=== PATIENT | female | born 1995 | race Caucasian/White ===

== ENCOUNTER 2021-09-19 08:35 | Emergency (ER) | payer SELFPAY ==
[2021-09-19 08:36] VITALS: BP 110/73; PULSE 130; RESP 16; TEMP 36.7; O2SAT 98; BMI 25.8
--- NOTE | 2021-09-19 08:58 | CT_ITS ---
STUDY: CT ABDOMEN AND PELVIS WITH CONTRAST REASON FOR EXAM: Female, 26 years old. RLQ pain, right flank pain RADIATION DOSAGE (If Supplied By Facility): CTDIvol = ( 11.83 ) mGy, DLP = ( 681.20 ) mGycm TECHNIQUE: Transaxial images were obtained from the dome of the diaphragm to the symphysis pubis with oral contrast. IV 100mL Isovue-300 was administered. Sagittal and coronal images were reconstructed. Individualized dose optimization techniques were used for this CT. COMPARISON: None. FINDINGS: The visualized lung bases are unremarkable. The visualized portions of the heart are within normal limits. Normal liver. There are surgical clips in the gallbladder fossa consistent with a prior cholecystectomy. Normal spleen. Normal pancreas. Normal bilateral adrenal glands. Normal right kidney. Normal left kidney. Normal visualized stomach. Normal small intestine. Normal colon. The appendix is visualized and appears normal. Normal abdominal aorta. Normal inferior vena cava. Normal retroperitoneum. Normal urinary bladder. Normal abdominal wall. Normal osseous structures. CT/Abdomen/Pelvis W IV Cont ONLY IMPRESSION: Normal enhanced CT of the abdomen and pelvis. Electronically Signed: Charles García MD at 11:13 EDT ,
--- NOTE | 2021-09-19 08:59 | EKG12_ITS ---
Test Reason : CP Blood Pressure : / mmHG Vent. Rate : 104 BPM Atrial Rate : 104 BPM P-R Int : 116 ms QRS Dur : 090 ms QT Int : 326 ms P-R-T Axes : 067 076 061 degrees QTc Int : 428 ms Sinus tachycardia Otherwise normal ECG Confirmed by GALE RICHARD, JOSÉ MIGUEL ([id number]), editor farm journal CONRADO HUNT ([id number]) on 09/21/2021 1:20:54 PM Referred By: BRANDO Confirmed By:JOSÉ MIGUEL BEASLEY MD
[2021-09-19 09:06] LABS: Absolute Lymphocyte Count 1.47 X10^3/uL (0.83-4.51); Absolute Neutrophil Count 7.1 X10^3/uL (2.0-7.7); Basophil# 0.05 X10^3/uL; Basophil% 0.5 % (0-1); Eosinophil# 0.02 X10^3/uL; Eosinophils% 0.2 % (0-5); Hematocrit 41.2 % (37-47); Hemoglobin 13.7 g/dL (12.0-15.0); Lymphocyte # 1.47 X10^3/ul (0.83-4.51); Lymphocyte % 15.5 % (19-41); Mean Corp Hgb Conc 33.3 g/dL (32-36); Mean Corpuscular Volume 84.3 fL (81-99); Mean Platelet Vol. 10.6 fl (6.2-12.0); Monocyte# 0.85 X10^3/uL; Monocyte% 8.9 % (0-10); NRBC Flagged by Analyzer 0 % (0-5); Neutrophil # 7.08 X10^3/uL (2.7-7.7); Neutrophil % 74.6 % (47-70); Platelet Count 222 K/mm3 (150-450); RBC Distribution Width CV 13.7 % (11.6-14.6); RBC Distribution Width SD 42.5 fl (35.1-43.9); Red Blood Count 4.89 M/mm3 (4.2-5.4); White Blood Count 9.5 K/mm3 (4.4-11.0)
[2021-09-19 09:14] LABS: Bacteria 0 SEEN /hpf (None Seen); Mucous, Urine 0 SEEN /hpf (<or=2+)
[2021-09-19 09:20] LABS: ALB/GLOB Ratio 0.8 RATIO (0.9-2.4); AST(SGOT) 20 U/L (15-37); Alanine Aminotransfer ALT/SGPT 22 U/L (13-56); Albumin, Serum 3.8 g/dL (3.2-5.0); Alkaline Phosphatase 89 U/L (45-117); Anion Gap 11 (5-15); BUN 10 mg/dL (7-18); BUN/Creat Ratio 10.1 RATIO (10-20); Calcium,Total 8.9 mg/dL (8.5-10.1); Chloride 101 mmol/L (98-107); Creatinine, Serum 0.99 mg/dL (0.55-1.02); EST Glomerular Filtration Rate 71 mL/min (>60); Est Glom Filt Rate - Afr Amer 86 mL/min (>60); Globulin 4.5 g/dL (2.2-4.2); Glucose 105 mg/dL (74-106); Lipase 42 U/L (73-393); Potassium 3.4 mmol/L (3.5-5.1); Protein, Total 8.3 g/dL (6.4-8.2); Sodium Level 134 mmol/L (136-145)
[2021-09-19 09:22] LABS: Color, Urine Yellow (Yellow); Glucose, Dipstick Normal (Normal); Ketone-Dipstick 150 mg/dl (Negative); Leukocyte Esterase-Dipstick 500 /ul (Negative); Nitrite-Dipstick Positive (Negative); Occult Blood-Urine 150 /ul (Negative); Protein-Dipstick 30 mg/dl (Negative); Urine Bilirubin Dipstick 1 mg/dL (Negative); Urine Clarity Sl. Cloudy (Clear); Urine Urobilinogen 4 mg/dl (Normal)
[2021-09-19 09:24] LABS: Red Blood Cells-Urine 0-5 SEEN /hpf (0-5); Squamous Epithelial Cells - UA 0-5 SEEN /hpf (5-10); White Blood Cells 10-25 SEEN /hpf (0-5)
--- NOTE | 2021-09-19 09:24 | EX.ED.DYSGE1 ---
HPI History of Present Illness Chief Complaint: Nausea/Vomiting/Diarrhea Informant: patient Narrative Narrative: Patient is a 26-year-old female denies any significant past medical history presenting with abdominal pain, nausea, vomiting and dehydration. Patient states for 4 days she has had the symptoms. It started with of some urinary frequency and dysuria. She states she cannot keep down any water or food now for 4 days. She is also been having diarrhea. She is tried taking [id number] azole as well as Pepto-Bismol. She notes that her stool has been black since then and her urine is now turning orange. She has had increased vaginal discharge for the past 5 days as well. She is complaining of lower abdominal pain. She notes that she felt she was going to pass out was lightheaded coming to the ER today. She is also the sharp pain in her chest. She had surgical history of cholecystectomy, tonsillectomy and adenoidectomy and pilonidal cyst removal. She denies any difficulty breathing. Denies any history of anything similar to this in the past. Patient states that she is not on any control but is been told that she cannot get . She denies any new sexual partners. She states she is not concerned for any STI especially gonorrhea or chlamydia. Last menstrual period was 20 days ago. [facility] Medical History History of tonsillitis Home Medications metoclopramide HCl [Reglan] 10 mg PO Q6H PRN #20 tab 09/19/21 [Rx Last Taken Unknown] ondansetron 4 mg PO Q6H PRN #10 tab 09/19/21 [Rx Last Taken Unknown] sulfamethoxazole-trimethoprim [Bactrim DS] 1 tab PO BID #20 tab 09/19/21 [Rx Last Taken Unknown] Allergy/AdvReac Type Severity Reaction Status Date / Time amoxicillin Allergy Anaphylaxis Verified 09/19/21 08:36 Penicillins [PCN] Allergy Anaphylaxis Verified 09/19/21 08:36 Surgical History History of surgical removal of pilonidal cyst Hx of cholecystectomy Social History Smoking Status: Never smoker ROS ROS ED Constitutional Constitutional ED: Reports chills and other Details: Lightheaded ; Denies fever(s) Eyes Eyes: Denies change in vision Cardiovascular Cardiovascular: Reports chest pain; Denies palpitations Respiratory/Chest Respiratory/Chest: Denies cough or dyspnea Gastrointestinal Gastrointestinal: Reports abdominal pain, diarrhea, nausea and vomiting Genitourinary Genitourinary ED: Reports dysuria, hematuria and urinary frequency Musculoskeletal Musculoskeletal: Denies myalgias Integumentary Denies rash Neurologic Neurologic: Denies headache(s) or weakness Psychiatric Psychiatric: Denies depression EXAM Physical Exam Const Vital Signs: 09/19/21 08:36 09/19/21 10:36 09/19/21 12:51 Temperature 98.1 F Temperature Source Temporal Pulse Rate 130 H 99 74 Respiratory Rate 16 16 16 Blood Pressure 110/73 119/77 118/82 H Blood Pressure Mean 85 91 94 Pulse Ox 98 94 98 Oxygen Delivery Method Room Air Room Air Room Air 09/19/21 15:19 Temperature Temperature Source Pulse Rate 70 Respiratory Rate 18 Blood Pressure 119/74 Blood Pressure Mean Pulse Ox 97 Oxygen Delivery Method Positive well nourished and well developed General Appearance ED: well developed and NAD HEENT Reports dry mucous membranes Negative for trauma Mouth ED: Yes dry mucous membranes Mouth: dry mucous membranes Eyes PERRL and EOMs intact bilaterally Neck supple General: Negative for tenderness Chest Wall inspection of chest normal Resp normal respiratory effort and clear to auscultation bilaterally Cardio regular rhythm and no murmurs Rate: tachycardic GI non-distended Inspection: Negative for abdominal distention Palpation: soft and tender RLQ; Negative for guarding Back/Spine General Back: CVA tenderness right Extremity normal to inspection General Extremety ED: Negative for edema or tenderness General Extremity: Negative for edema Neuro oriented x3 and CN's II-XII intact bilaterally Motor Exam: general weakness Psych mental status grossly normal Skin no rashes or lesions noted and no wounds MDM MDM MDM Narrative Medical decision making narrative: Patient is evaluated for 4 days of dysuria now worsening nausea, vomiting and right-sided flank pain. She has been taking Pepto-Bismol as well as [id number] azo. I suspect the orange discoloration of her urine is from now so and her black stools are secondary to the Pepto-Bismol. Patient's hemoglobin is normal and I do not think she is an unstable GI bleed. CMP largely unremarkable. As she does have 150 ketones in her urine consistent with dehydration. She is given a total of 2 L of fluid and 2 doses of IV Zofran but continues to have some vomiting. Urinalysis is consistent with infection. Patient denies any concern for STIs but does report change in her vaginal discharge. I did send off gonorrhea and chlamydia which were negative. Urine culture is sent and clinically I suspect patient has pyelonephritis. Given the right-sided pain I did obtain a CT of the abdomen pelvis to also rule out obstructing stone versus appendicitis. CT is large unremarkable. Patient is then given IV Reglan and a dose of IV Bactrim for her UTI as she is allergic with anaphylaxis to penicillins. On repeat evaluation she is feeling much better. She is tolerating p.o. She be discharged home with a prescription for Zofran as well as oral Reglan and Bactrim. Patient is counseled on return precautions. Given that she can tolerate p.o. and she otherwise is afebrile with a normal white blood cell count and well-appearing I think she is a good candidate for outpatient treatment. Patient verbalizes agreement understand this plan. Discharged home in stable condition. Lab Data Attestation: I reviewed the patient's lab results. Labs: Laboratory Results - last 24 hr 09/19/21 09/19/21 09/19/21 08:55 08:55 08:55 WBC 9.5 RBC 4.89 Hgb 13.7 Hct 41.2 MCV 84.3 MCH 28.0 MCHC 33.3 RDW Std Deviation 42.5 RDW Coeff of Tanisha 13.7 Plt Count 222 MPV 10.6 Immature Gran % (Auto) 0.300 Neut % (Auto) 74.6 H Lymph % (Auto) 15.5 L Gove % (Auto) 8.9 Eos % (Auto) 0.2 Baso % (Auto) 0.5 Absolute Neuts (auto) 7.1 Absolute Lymphs (auto) 1.47 Nucleated RBC % 0 Sodium 134 L Potassium 3.4 L Chloride 101 Carbon Dioxide 22.0 Anion Gap 11 BUN 10 Creatinine 0.99 Estim Creat Clear Calc 79.20 Est GFR (MDRD) Af Amer 86 Est GFR (MDRD) Non-Af 71 BUN/Creatinine Ratio 10.1 Glucose 105 Calcium 8.9 Total Bilirubin 0.60 AST 20 ALT 22 Alkaline Phosphatase 89 Total Protein 8.3 H Albumin 3.8 Globulin 4.5 H Albumin/Globulin Ratio 0.8 L Lipase 42 L Serum , Qual NEGATIVE Urine Color Urine Clarity Urine pH Ur Specific [place] Urine Protein Urine Glucose (UA) Urine Ketones Urine Occult Blood Urine Nitrite Urine Bilirubin Urine Urobilinogen Ur Leukocyte Esterase Urine RBC Urine WBC Ur Squamous Epith Cells Urine Bacteria Urine Mucus Urine Test Chlam trachomat DNA PCR N.gonorrhoeae DNA (PCR) 09/19/21 09/19/21 09:09 09:09 WBC RBC Hgb Hct MCV MCH MCHC RDW Std Deviation RDW Coeff of Tanisha Plt Count MPV Immature Gran % (Auto) Neut % (Auto) Lymph % (Auto) Gove % (Auto) Eos % (Auto) Baso % (Auto) Absolute Neuts (auto) Absolute Lymphs (auto) Nucleated RBC % Sodium Potassium Chloride Carbon Dioxide Anion Gap BUN Creatinine Estim Creat Clear Calc Est GFR (MDRD) Af Amer Est GFR (MDRD) Non-Af BUN/Creatinine Ratio Glucose Calcium Total Bilirubin AST ALT Alkaline Phosphatase Total Protein Albumin Globulin Albumin/Globulin Ratio Lipase Serum , Qual Urine Color Yellow Urine Clarity Sl. Cloudy Urine pH 6.0 Ur Specific [place] 1.020 Urine Protein 30 H Urine Glucose (UA) Normal Urine Ketones 150 A* Urine Occult Blood 150 H Urine Nitrite Positive H Urine Bilirubin 1 H Urine Urobilinogen 4 H Ur Leukocyte Esterase 500 H Urine RBC 0-5 SEEN Urine WBC 10-25 SEEN Ur Squamous Epith Cells 0-5 SEEN Urine Bacteria 0 SEEN Urine Mucus 0 SEEN Urine Test Cancelled Chlam trachomat DNA PCR Negative N.gonorrhoeae DNA (PCR) Negative Radiography Diagnostic Testing: Clinical Impression(s) from Imaging Studies Abdomen/Pelvis CT 09/19/21 08:58 IMPRESSION: Normal enhanced CT of the abdomen and pelvis. Electronically Signed: Charles García MD at 11:13 EDT , Chest X-Ray 09/19/21 10:00 IMPRESSION: Normal x-ray examination of the chest. Electronically Signed: Charles García MD at 10:18 EDT , Rhythm Strip Rhythm Strip: Sinus Tach Rate: 104 Ectopy: None EKG Initial EKG: Attestation: I personally reviewed and interpreted this EKG as follows: Interpretation: Sinus Tachycardia Comments: Sinus tachycardia at a rate of 104 Normal axis Normal intervals Normal ST segments Prior: No Prior Discharge Plan Triage Chief Complaint: Nausea/Vomiting/Diarrhea ED Provider: Kat Sherman Dx/Rx/DC Orders Clinical Impression: Pyelonephritis, Nausea & vomiting, Acute dehydration Instructions: ED Pyelonephritis, Female (Adult), ED Vomiting (Adult) Prescriptions: New sulfamethoxazole-trimethoprim [Bactrim DS] 800-160 mg tablet 1 tab PO BID Qty: 20 RF: 0 metoclopramide HCl [Reglan] 10 mg tablet 10 mg PO Q6H PRN (Reason: nausea and vomiting) Qty: 20 RF: 0 ondansetron 4 mg tablet,disintegrating 4 mg PO Q6H PRN (Reason: nausea and vomiting) Qty: 10 RF: 0 Primary Care Provider: Care Physician,No Primary Referrals: Estela Huff MD [STAFF PHYSICIAN] - Rachele Johnson [NON-STAFF] - Care Physician,No Primary [Primary Care Provider] - Disposition Disposition: Home, Self Care Discharge Date/Time: 09/19/21 15:22
[2021-09-19] MEDS: 0.9% Normal Saline 1,000 ML 1000 ML IV (09:34)
[2021-09-19] MEDS: Ondansetron 4 MG/2 ML Vial IV ×2 (09:34→10:57)
--- NOTE | 2021-09-19 10:00 | RAD_ITS ---
STUDY: X-RAY CHEST REASON FOR EXAM: Female, 26 years old. chest pain TECHNIQUE: Single AP portable view of the chest. COMPARISON: None. FINDINGS: The lungs are clear and expanded. There is no demonstrated pleural abnormality. Normal size heart. Normal mediastinum and toni. Normal visualized pulmonary arteries. Normal visualized aortic arch and descending thoracic aorta. Normal visualized thoracic spine. Normal visualized ribs, clavicles, and shoulders. There is no demonstrated abnormality of the visualized soft tissue structures of the upper abdomen. RAD/Chest 1 View (Portable) IMPRESSION: Normal x-ray examination of the chest. Electronically Signed: Charles García MD at 10:18 EDT ,
[2021-09-19 10:01] LABS: Internal QC Validated? YES +Cl - CLEAR BKGD; Pregnancy, Serum, hCG Quali. NEGATIVE Negative
[2021-09-19 10:36] VITALS: BP 119/77; PULSE 99; RESP 16; O2SAT 94
[2021-09-19 10:51] LABS: Chlamydia Trachomatis by PCR Negative (Negative); Neisserai gonorrhoeae by PCR Negative (Negative); Specimen Processing Control PASS
[2021-09-19 10:52] LABS: Probe Check PASS; Sample Adequacy Control PASS
[2021-09-19] MEDS: 0.9% Normal Saline 1,000 ML 999 ML IV (10:57)
[2021-09-19 12:51] VITALS: BP 118/82; PULSE 74; RESP 16; O2SAT 98
[2021-09-19] MEDS: Metoclopramide 10 MG/2 ML Vial 5 MG IV (13:23)
[2021-09-19 15:19] VITALS: BP 119/74; PULSE 70; RESP 18; O2SAT 97
== END 2021-09-19 15:22 | disposition home or self-care (01) ==
PROVIDERS: Emergency Provider Emergency Medicine; Visit Provider Emergency Medicine
DX: N12 Tubulo-interstitial nephritis, not specified as acute or chronic (principal); E86.0 Dehydration; N89.8 Other specified noninflammatory disorders of vagina; Z11.3 Encounter for screening for infections with a predominantly sexual mode of transmission
CPT/HCPCS: 71045; 74177; 80048; 80053; 81001; 83690; 84703; 85025; 87086; 87088; 87491; 87591; 93005; 96361; 96365; 96366; 96375; 96376; 99284; J7030; J7050; Q9967; A4216; J2405

== ENCOUNTER 2022-04-04 09:30 | Emergency (ER) | payer SELFPAY ==
[2022-04-04 09:30] VITALS: BP 129/86; PULSE 101; RESP 16; TEMP 37; O2SAT 96; BMI 27.6
--- NOTE | 2022-04-04 10:48 | ED.VIS.DENTA ---
HPI History of Present Illness Chief Complaint: Dental Informant: patient Narrative Narrative: 26-year-old female presenting to the emergency room with the chief complaint of facial swelling. Patient states that on Sunday she flexed her right lower molar with her tongue and a piece of the tooth fell off. Up into that moment she had not had any pain in her tooth. She put some temporary filling on and called [facility] and they cannot see her until she has been on antibiotics. So they referred her to the emergency department for her dental care. She denies any fevers. She states her face feels swollen PFSH PFS Medical History History of tonsillitis Home Medications NK 04/04/22 [History Last Taken Unknown] Allergy/AdvReac Type Severity Reaction Status Date / Time amoxicillin Allergy Anaphylaxis Verified 04/04/22 09:30 Penicillins [PCN] Allergy Anaphylaxis Verified 04/04/22 09:30 Surgical History History of surgical removal of pilonidal cyst Hx of cholecystectomy Social History (Updated 04/04/22 @ 10:[address] Sid Miller DO) Smoking Status: Never smoker substance use type: does not use ROS ROS ED Constitutional Constitutional ED: Denies chills or weight loss Eyes Eyes: Denies change in vision or diplopia ENT ENT ED: Reports other Details: See history of present illness ; Denies ear pain, rhinorrhea or sore throat Cardiovascular Cardiovascular: Denies chest pain, orthopnea, palpitations or racing heartbeat Respiratory/Chest Respiratory/Chest: Denies cough, dyspnea or orthopnea Gastrointestinal Gastrointestinal: Denies abdominal pain, diarrhea, nausea or vomiting Genitourinary Genitourinary ED: Denies dysuria, hematuria or urinary frequency Musculoskeletal Musculoskeletal: Denies arthralgias or myalgias Integumentary Denies abscess or rash Neurologic Neurologic: Denies headache(s) or weakness Psychiatric Psychiatric: Denies anxiety, depression, suicidal ideation or suicidal thoughts Endocrine Endocrinology: Denies polydipsia, polyphagia or polyuria Allergic/Immunologic Allergic/Immunologic ED: Denies mouth swelling, tongue swelling or urticaria EXAM Physical Exam Const Vital Signs: 04/04/22 09:30 Temperature 98.6 F Temperature Source Temporal Pulse Rate 101 H Respiratory Rate 16 Blood Pressure 129/86 H Blood Pressure Mean 100 Pulse Ox 96 Oxygen Delivery Method Room Air Positive well nourished and well developed General Appearance ED: well developed HEENT Reports normocephalic, head/scalp atraumatic and moist mucous membranes HEENT Narrative: Mild facial swelling on the right. No overlying erythema. The eye appears normal. Inferior right molars demonstrates some temporary fillings in place. There is no focal gum swelling. There is no floor the mouth swelling. There is no trismus Eyes PERRL and EOMs intact bilaterally Neck no lymphadenopathy, supple and no JVD Resp normal respiratory effort and clear to auscultation bilaterally Cardio regular rate, regular rhythm and no murmurs GI normal to inspection, nondistended, normoactive bowel sounds and non-tender Palpation: soft Back/Spine no CVA tenderness and normal ROM Extremity normal to inspection General Extremety ED: Negative for edema General Extremity: Negative for edema Neuro oriented x3 and CN's II-XII intact bilaterally Sensorium / Orientation: alert Motor Exam: strength 5/5 throughout Psych mental status grossly normal Mood & Affect: Negative for depressed or tearful Skin no rashes or lesions noted and no wounds MDM MDM MDM Narrative Medical decision making narrative: Patient will be started on antibiotics and pain medication. She will follow-up with dentistry Discharge Plan Triage Chief Complaint: Dental ED Provider: Sid Miller Dx/Rx/DC Orders Prescriptions: No Action NK Primary Care Provider: Care Physician,No Primary Referrals: Care Physician,No Primary [Primary Care Provider] -
== END 2022-04-04 11:10 | disposition home or self-care (01) ==
LOC: ED 11:01
PROVIDERS: Emergency Provider Emergency Medicine; Visit Provider Emergency Medicine
DX: R22.0 Localized swelling, mass and lump, head (principal)
CPT/HCPCS: 99283

== ENCOUNTER 2022-07-07 11:06 | Emergency (ER) | payer SELFPAY ==
[2022-07-07 11:07] VITALS: PULSE 80; RESP 16; TEMP 36.7; O2SAT 98; BMI 27.4
--- NOTE | 2022-07-07 11:34 | EX.ED.DYSGE1 ---
HPI <CATARINA Palafox - Last Filed: 07/07/22 12:09> History of Present Illness Chief Complaint: Lower Extremity Injury Narrative Narrative: 27-year-old female presents with left foot pain. Yesterday she started to get pain around the first MTP joint and today the area started to look swollen and red on the sole of her foot. No known injury. She states she wears steel toed boots is on her feet for 8 hours a day at work. She has no history of gout. No fever or chills. No calf pain, chest pain or shortness of breath. PFSH <CATARINA Palafox - Last Filed: 07/07/22 12:09> PFSH Medical History History of tonsillitis Home Medications ibuprofen 600 mg tablet 600 mg PO Q6H PRN PRN pain #20 TABLETS 07/07/22 [Rx Last Taken Unknown] Allergy/AdvReac Type Severity Reaction Status Date / Time amoxicillin Allergy Anaphylaxis Verified 07/07/22 11:08 Penicillins [PCN] Allergy Anaphylaxis Verified 07/07/22 11:08 Surgical History History of surgical removal of pilonidal cyst Hx of cholecystectomy Social History (Updated 04/04/22 @ 10:[address] Sid Miller DO) Smoking Status: Never smoker substance use type: does not use ROS <CATARINA Palafox - Last Filed: 07/07/22 12:09> ROS ED ROS Narrative Constitutional: Negative for fever, chills, malaise. CVS: Negative for palpitations, chest pain. Respiratory: Negative for shortness of breath, cough. Neuro: Negative for motor/sensory dysfunction. Skin: Negative for rash, abscess, or wound. Musc: Positive for right foot pain, swelling. No trauma. Heme: Negative for easy bruising, bleeding, lymphadenopathy. EXAM <CATARINA Palafox - Last Filed: 07/07/22 12:09> Physical Exam Const Vital Signs: 07/07/22 11:07 Temperature 98.0 F Temperature Source Temporal Pulse Rate 80 Respiratory Rate 16 Pulse Ox 98 Oxygen Delivery Method Room Air <Dr. Roberto Bhakta MD - Last Filed: 07/07/22 13:43> Physical Exam Const Vital Signs: 07/07/22 11:07 Temperature 98.0 F Temperature Source Temporal Pulse Rate 80 Respiratory Rate 16 Pulse Ox 98 Oxygen Delivery Method Room Air [facility] <CATARINA Palafox - Last Filed: 07/07/22 12:09> [facility] Narrative Medical decision making narrative: PA: Patient has atraumatic right first MTP pain. There is mild swelling and slight erythema on the plantar surface of the right first MTP joint. There is no fluctuance or crepitus to suggest an abscess. There is no break in the skin. The rest of her lower extremity appears normal and is neurovascularly intact. No calf pain or palpable cords. This seems most consistent with gout but she has no history of this. X-ray was obtained. ED attending interpretation shows normal foot fracture or dislocation and no acute osseous changes. Patient was given a dose of prednisone and ibuprofen here with a prescription for ibuprofen for home. We discussed return precautions and she was discharged in stable condition. I have personally performed a face to face assessment of the patient and have reviewed the KARISSA Note. I performed a substantive portion of the visit including all aspects of the following. My maldonado findings include: History is remarkable for abrupt onset of atraumatic pain first right MTP joint. Patient denies history of gout or pseudogout. She is not on a loop or thiazide diuretic. There is no family history of gout. She denies history of gout or pseudogout. She denies fever, chills night sweats. She has no medical problems and on no medication. Exam is there is slight erythema medial plantar surface of the right first MTP joint. There is pain with passive plantar and dorsiflexion of the great toe. There is no evidence of trauma to the great toe or foot. DP and PT pulse are palpable. There is no effusion appreciated. There is no limitation with regards to range of motion of the ankle. Medical Decision Making suspect patient has gout versus pseudogout doubt pyogenic arthritis. Since there is no history of trauma no evidence of trauma doubt this to be the cause. Will obtain x-rays to determine if any radiographic evidence to suggest pseudogout or any bone destruction. Other additions or changes: Since there is no contraindication patient was treated with NSAID and given a dose of steroids in the department. She be discharged to home. Radiography Diagnostic Testing: Clinical Impression(s) from Imaging Studies Foot X-Ray 07/07/22 11:42 IMPRESSION: Negative right foot x-rays. Electronically Signed: Larry Jha MD at 11:55 EST Reading Location ID and State: [id number] Tel , Service support , <Dr. Roberto Bhakta MD - Last Filed: 07/07/22 13:43> [facility] MDM Narrative Medical decision making narrative: I have personally performed a face to face assessment of the patient and have reviewed the KARISSA Note. I performed a substantive portion of the visit including all aspects of the following. My maldonado findings include: History is remarkable for abrupt onset of atraumatic pain first right MTP joint. Patient denies history of gout or pseudogout. She is not on a loop or thiazide diuretic. There is no family history of gout. She denies history of gout or pseudogout. She denies fever, chills night sweats. She has no medical problems and on no medication. Exam is there is slight erythema medial plantar surface of the right first MTP joint. There is pain with passive plantar and dorsiflexion of the great toe. There is no evidence of trauma to the great toe or foot. DP and PT pulse are palpable. There is no effusion appreciated. There is no limitation with regards to range of motion of the ankle. Medical Decision Making suspect patient has gout versus pseudogout doubt pyogenic arthritis. Since there is no history of trauma no evidence of trauma doubt this to be the cause. Will obtain x-rays to determine if any radiographic evidence to suggest pseudogout or any bone destruction. Other additions or changes: Since there is no contraindication patient was treated with NSAID and given a dose of steroids in the department. She be discharged to home. Radiography Diagnostic Testing: Clinical Impression(s) from Imaging Studies Foot X-Ray 07/07/22 11:42 IMPRESSION: Negative right foot x-rays. Electronically Signed: Larry Jha MD at 11:55 EST , Discharge Plan Triage Chief Complaint: Lower Extremity Injury ED Midlevel Provider: Tomeka Gallego ED Provider: Roberto Bhakta Dx/Rx/DC Orders Clinical Impression: Acute pain of right foot, Acute gout involving toe of right foot Instructions: ED Gout Prescriptions: New ibuprofen 600 mg tablet 600 mg PO Q6H PRN PRN (Reason: pain) Qty: 20 0RF Stand Alone Forms: ED Work / School Excuse Primary Care Provider: Care Physician,No Primary Referrals: Care Physician,No Primary [Primary Care Provider] - Activity Restrictions/Additional Instructions: You may be developing gout. I prescribed ibuprofen which is an anti-inflammatory to help treat this pain and inflammation. You were also given a dose of steroids here which should help. Please follow-up with your primary care doctor. Return to ER if symptoms worsen. Disposition Disposition: Home, Self Care Discharge Date/Time: 07/07/22 12:43
--- NOTE | 2022-07-07 11:42 | RAD_ITS ---
EXAM: XR RIGHT FOOT COMPLETE, 3 OR MORE VIEWS CLINICAL INDICATION: foot pain TECHNIQUE: Frontal, lateral and oblique views of the right foot. This report was created using [employer] report generation technology. COMPARISON: None. FINDINGS: BONES/JOINTS: Unremarkable. No acute fracture. No subluxation. Normal alignment. Preservation of the joint space. No sclerotic or destructive changes observed. SOFT TISSUES: Unremarkable. No soft tissue swelling or gas. No radiopaque foreign body. RAD/Foot min 3 Views IMPRESSION: Negative right foot x-rays. Electronically Signed: Larry Jha MD at 11:55 EST ,
[2022-07-07] MEDS: Ibuprofen 600 MG Tablet PO (11:46)
[2022-07-07] MEDS: predniSONE 20 MG Tablet 60 MG PO (12:41)
== END 2022-07-07 12:43 | disposition home or self-care (01) ==
PROVIDERS: Emergency Provider Emergency Medicine; Visit Provider Emergency Medicine
DX: M10.9 Gout, unspecified (principal)
CPT/HCPCS: 73630; 99283

== ENCOUNTER 2022-07-10 15:36 | Emergency (ER) | payer SELFPAY ==
[2022-07-10 15:36] VITALS: BP 133/98; PULSE 105; RESP 14; TEMP 36.3; O2SAT 98; BMI 27.4
--- NOTE | 2022-07-10 16:31 | EDS_ITS ---
HPI History of Present Illness Chief Complaint: Lower Extremity Injury Informant: patient Narrative Narrative: Patient states she has been having pain in her first MTP since about Sunday/5 days ago. She was seen a few days ago for this. This appeared to be gout. She was started on nonsteroidals. She was given a dose of steroids. An x-ray was done. But she states the pain is not getting any better. She still not having fevers or chills. But she does state the pain seems to be moving up the foot and lower leg a little bit at times. She again denies any trauma or injury to this. No recent infections. Of note she does have anaphylaxis to penicillins so those will be avoided. [facility] Medical History History of tonsillitis Home Medications ibuprofen 600 mg tablet 600 mg PO Q6H PRN PRN pain #20 TABLETS 07/07/22 [Rx Last Taken Unknown] ciprofloxacin HCl 750 mg tablet 750 mg PO BID #20 tabs 07/10/22 [Rx Last Taken Unknown] doxycycline monohydrate 100 mg capsule 100 mg PO BID #20 CAPSULES 07/10/22 [Rx Last Taken Unknown] hydrocodone-acetaminophen 5-325mg 5mg-325mg 1 tab PO Q6H PRN PRN Pain 3 days #10 TABLETS 07/10/22 [Rx Last Taken Unknown] Allergy/AdvReac Type Severity Reaction Status Date / Time amoxicillin Allergy Anaphylaxis Verified 07/10/22 15:38 Penicillins [PCN] Allergy Anaphylaxis Verified 07/10/22 15:38 vancomycin AdvReac Hives Verified 07/10/22 17:48 Family History no significant family his Surgical History History of surgical removal of pilonidal cyst Hx of cholecystectomy Social History Smoking Status: Never smoker substance use type: does not use ROS ROS ED Constitutional Constitutional ED: Denies fever(s) or subjective ENT ENT ED: Denies rhinorrhea or sore throat Cardiovascular Cardiovascular: Denies chest pain, palpitations or racing heartbeat Respiratory/Chest Respiratory/Chest: Denies cough or dyspnea Gastrointestinal Gastrointestinal: Denies nausea or vomiting Musculoskeletal Musculoskeletal: Reports arthralgias; Denies neck pain Integumentary Reports rash and other Details: Redness near first MTP area. Neurologic Neurologic: Denies paresthesias or weakness Endocrine Endocrinology: Denies polydipsia or polyuria Hematologic/Lymphatic Hematologic/Lymphatic: Denies lymphadenopathy Allergic/Immunologic Allergic/Immunologic ED: Denies urticaria EXAM Physical Exam Narrative Exam Narrative: Patient is awake alert sitting in bed. She does not look toxic or acutely ill. HEENT shows moist mucous membranes Heart is regular with a rate of about 90-100. No murmur. No trouble breathing. Sats are normal at 98% on room air. Abdomen is soft nontender Extremities do show some erythema that is notable right at the medial aspect of her right first MTP. This is strongly consistent with gout. However, when I looked under the great toe there is an area about 1/2 x 1-1/2 cm that is white and appears to have some purulence behind this. This area is also tender. There is pain with motion of that joint. I think this actually now is representing an infection. Patient has not seen the spot. But she does state that the swelling has increased since the other day so I think this is new. I do not see erythema streaking up the leg. There is no cord or tenderness or asymmetry. Neurologically she is awake alert and appropriate. Const Vital Signs: 07/10/22 15:36 Temperature 97.3 F L Temperature Source Temporal Pulse Rate 105 H Respiratory Rate 14 Blood Pressure 133/98 H Blood Pressure Mean 109 Pulse Ox 98 Oxygen Delivery Method Room Air MDM MDM MDM Narrative Medical decision making narrative: Patient CBC is actually normal. Electrolytes show no marked abnormalities. Glucose had minimal elevation of 112. Calcium was normal. Uric acid was very normal. Because of the repeat visit, swelling around the whole toe and worry about intra-articular involvement, I did discuss the case with Dr. Macias. He was kind enough to come in and see this patient. He did open up that area and get a lot of drainage and irrigation out. He recommended Doxy and Cipro. He will follow her up as an outpatient. He states she may need more formal washout but he thinks he got pretty good cleaning of that area and she has excellent follow- up. Lab Data Labs: Laboratory Results - last 24 hr 03/13/23 03/13/23 03/13/23 16:42 16:42 16:42 WBC 8.9 RBC 4.81 Hgb 13.5 Hct 44.3 MCV 92.1 MCH 28.1 MCHC 30.5 L RDW Std Deviation 43.4 RDW Coeff of Tanisha 12.8 Plt Count 298 MPV 9.8 Immature Gran % (Auto) 0.200 Neut % (Auto) 58.1 Lymph % (Auto) 31.6 [place] % (Auto) 7.3 Eos % (Auto) 2.5 Baso % (Auto) 0.3 Absolute Neuts (auto) 5.2 Absolute Lymphs (auto) 2.82 Nucleated RBC % 0 Sodium 140 Potassium 3.8 Chloride 105 Carbon Dioxide 30.0 Anion Gap 5 BUN 10 Creatinine 0.75 Estim Creat Clear Calc 103.61 Est GFR (MDRD) Af Amer 118 Est GFR (MDRD) Non-Af 98 BUN/Creatinine Ratio 13.4 Glucose 112 H Uric Acid 4.4 Calcium 8.8 Discharge Plan Triage Chief Complaint: Lower Extremity Injury ED Provider: Julio Benoit Dx/Rx/DC Orders Clinical Impression: Abscess of right foot Instructions: ED Abscess Incision And Drainage Prescriptions: New doxycycline monohydrate 100 mg capsule 100 mg PO BID Qty: 20 0RF ciprofloxacin HCl 750 mg tablet 750 mg PO BID Qty: 20 0RF hydrocodone-acetaminophen [hydrocodone-acetaminophen] 5-325 mg tablet 1 tab PO Q6H PRN PRN (Reason: Pain) 3 Days Qty: 10 0RF No Action ibuprofen 600 mg tablet 600 mg PO Q6H PRN PRN (Reason: pain) Qty: 20 0RF Primary Care Provider: Care Physician,No Primary Referrals: Sid Macias DPM [Med Staff - Active Staff] - Keep [facility] appointment Care Physician,No Primary [Primary Care Provider] - Disposition Disposition: Home, Self Care
[2022-07-10] MEDS: 0.9% Normal Saline 1,000 ML 1000 ML IV (16:46)
[2022-07-10] MEDS: Morphine 4 MG/ML Syringe IV (16:46)
[2022-07-10] MEDS: Ondansetron 4 MG/2 ML Vial IV (16:46)
[2022-07-10 16:51] LABS: Absolute Lymphocyte Count 2.82 X10^3/uL (0.83-4.51); Absolute Neutrophil Count 5.2 X10^3/uL (2.0-7.7); Basophil# 0.03 X10^3/uL; Basophil% 0.3 % (0-1); Eosinophil# 0.22 X10^3/uL; Eosinophils% 2.5 % (0-5); Hematocrit 44.3 % (37-47); Hemoglobin 13.5 g/dL (12.0-15.0); Lymphocyte # 2.82 X10^3/ul (0.83-4.51); Lymphocyte % 31.6 % (19-41); Mean Corp Hgb Conc 30.5 g/dL (32-36); Mean Corpuscular Hgb 28.1 pg (27.0-32.0); Mean Corpuscular Volume 92.1 fL (81-99); Mean Platelet Vol. 9.8 fl (6.2-12.0); Monocyte# 0.65 X10^3/uL; Monocyte% 7.3 % (0-10); NRBC Flagged by Analyzer 0 % (0-5); Neutrophil # 5.17 X10^3/uL (2.7-7.7); Neutrophil % 58.1 % (47-70); Platelet Count 298 K/mm3 (150-450); RBC Distribution Width CV 12.8 % (11.6-14.6); RBC Distribution Width SD 43.4 fl (35.1-43.9); Red Blood Count 4.81 M/mm3 (4.2-5.4); White Blood Count 8.9 K/mm3 (4.4-11.0)
[2022-07-10 17:03] LABS: Anion Gap 5 (5-15); BUN 10 mg/dL (7-18); BUN/Creat Ratio 13.4 RATIO (10-20); Calcium,Total 8.8 mg/dL (8.5-10.1); Chloride 105 mmol/L (98-107); Creatinine, Serum 0.75 mg/dL (0.55-1.02); EST Glomerular Filtration Rate 98 mL/min (>60); Est Glom Filt Rate - Afr Amer 118 mL/min (>60); Estimated Creatinine Clearance 103.61 ml/min; Glucose 112 mg/dL (74-106); Potassium 3.8 mmol/L (3.5-5.1); Sodium Level 140 mmol/L (136-145)
[2022-07-10] MEDS: DiphenhydrAMINE 50 MG/ML Syringe 25 MG IV (17:35)
--- NOTE | 2022-07-10 17:43 | ED.RN ---
Patient had a reaction to the Vancomycin. Medication stopperd. Red man syndrome. Physician notified.
[2022-07-10 18:24] LABS: Uric Acid 4.4 mg/dL (2.6-6.0)
[2022-07-10] MEDS: Lidocaine 1% (20 ml mdv) 20 ML Vial INFILT (18:59)
--- NOTE | 2022-07-10 19:17 | PCM.CONS.GEN ---
Assessment & Plan Assessment/Plan (1) Acute pain of right foot: PLAN: Exam performed. Patient has an abscess to the interdigital space. Patient historically has had athlete's foot in the past. Potential that there is cracking or fissuring in the interdigital space which allowed for acute bacterial infection to develop. Patient is vitally stable. Labs were within normal limits. Uric acid was within normal limits. Radiographs within normal limits to right foot. Local incision and drainage performed to right foot abscess in the interdigital space Surgeon: Sid Macias D.P.M. Preop diagnosis: focal abscess right foot interdigital space first interspace Postoperative diagnosis: same Procedure: incision drainage abscess right foot Procedure in detail: After obtaining oral consent the right foot was prepped and a standard Potter block was performed using aseptic technique with 10cc 2.0% lidocaine plain. Additional local infiltration with lidocaine was applied at the plantar lateral hallux using 5 cc 2.0% lidocaine plain. Adequate anesthesia was noted at this time. Site was prepped with Betadine paint and using sterile scissors the blister was deroofed with combination of pickups. This blister was noted to track full-thickness into subcutaneous tissue. This time there is noted to be approximately 3 to 4 cc of purulent drainage that was expressed from the incision and drainage site. This was cultured with culture swabs and flushed with copious amounts of normal sterile saline. Subsequently hemostasis obtained with light compression. Patient tolerated procedure well. Site was dressed with Betadine paint 4 x 4's Kerlix and an Diego bandage. Patient had focal abscess to right plantar foot. As mentioned incision drainage performed. Site was cultured. Patient will keep dressing clean dry and intact and follow-up either or Sunday of this week. Patient will be discharged on p.o. doxycycline and ciprofloxacin, will change cultures pending final culture and sensitivity. Patient will maintain nonweightbearing status assisted by crutches. Patient will contact our clinic if she notes any signs or symptoms of worsening. Patient was instructed to use ibuprofen or Tylenol for any pain in the postprocedural stage. (2) Cellulitis of right toe: HPI Consult Data Date of Consult: 07/10/22 HPI Narrative HPI Narrative: GÓMEZ VENCES, is a 27 F who presents to the emergency with a red hot swollen right great toe. Patient has no family history of gout and no personal history of gout. Patient denies any injury to the site. Patient notes that the issues been present for a week and progressively worsening. Patient was seen in the ED 3 days prior treated for gout. Patient presents today with worsening of her symptoms and a blister forming in the interdigital spaces. Patient denies any constitutional symptoms. Patient denies any IV drug abuse. Patient denies any history of systemic illness that may cause immunosuppression. Patient denies stepping on any foreign body bug bites or animal bites. Patient notes pain with ambulation or manipulation of the right great toe joint. Patient has no other complaints at this time. [facility] Medical History History of tonsillitis Home Medications ibuprofen 600 mg tablet 600 mg PO Q6H PRN PRN pain #20 TABLETS 07/07/22 [Rx Last Taken Unknown] Allergy/AdvReac Type Severity Reaction Status Date / Time amoxicillin Allergy Anaphylaxis Verified 07/10/22 15:38 Penicillins [PCN] Allergy Anaphylaxis Verified 07/10/22 15:38 vancomycin AdvReac Hives Verified 07/10/22 17:48 Family History no significant family his Surgical History History of surgical removal of pilonidal cyst Hx of cholecystectomy Social History Smoking Status: Never smoker substance use type: does not use ROS Constitutional Constitutional: Denies fatigue, fever(s) or weight loss Eyes Eyes: Denies change in eye color, exophthalmos or nystagmus ENT HEENT: Denies dysphagia, mouth pain or sinus pain Cardiovascular Cardiovascular: Denies bluish discoloration of hand/feet, dyspnea at rest or lightheadedness Respiratory/Chest Respiratory/Chest: Denies difficulty clearing secretions, nail bed cyanosis or shortness of breath at rest Gastrointestinal Gastrointestinal: Denies chewing difficulty, coffee ground emesis or hematemesis Genitourinary Genitourinary: Denies contractions, difficulty urinating or genital pain Musculoskeletal Musculoskeletal: Denies joint stiffness, joint swelling or tingling Integumentary Integumentary: Reports erythema, furuncle and wounds Physical Exam Narrative Patient AOx3. Vascular dorsalis pedis posterior tibial pulses palpable 2 out of 4 to bilateral feet. Focal swelling noted to right plantar first metatarsal phalangeal joint with focal increase in warmth and erythema. Neurologic light touch protective sensation intact to bilateral feet. Dermatologic: There is noted to be an area of blistering into the interdigital space. This demonstrates significant peribullous erythema edema pain and fluctuance. Upon debridement there is noted to be approximately 3 cc of purulent drainage from the site. Small focal ulceration noted to the interdigital space at site of I&D. Musculoskeletal: No gross musculoskeletal deformities. Pain to right first metatarsophalangeal joint secondary to superficial infection. Lab / Micro Data Result Diagrams: 07/10/22 16:42 07/10/22 16:42 Labs: Laboratory Results - last 24 hr 07/10/22 16:42: WBC 8.9, RBC 4.81, Hgb 13.5, Hct 44.3, MCV 92.1, MCH 28.1, MCHC 30.5 L, RDW Std Deviation 43.4, RDW Coeff of Tanisha 12.8, Plt Count 298, MPV 9.8, Immature Gran % (Auto) 0.200, Neut % (Auto) 58.1, Lymph % (Auto) 31.6, [place] % (Auto) 7.3, Eos % (Auto) 2.5, Baso % (Auto) 0.3, Absolute Neuts (auto) 5.2, Absolute Lymphs (auto) 2.82, Nucleated RBC % 0 07/10/22 16:42: Sodium 140, Potassium 3.8, Chloride 105, Carbon Dioxide 30.0, Anion Gap 5, BUN 10, Creatinine 0.75, Estim Creat Clear Calc 103.61, Est GFR (MDRD) Af Amer 118, Est GFR (MDRD) Non-Af 98, BUN/Creatinine Ratio 13.4, Glucose 112 H, Calcium 8.8 07/10/22 16:42: Uric Acid 4.4
[2022-07-10 19:43] VITALS: RESP 16
== END 2022-07-10 19:47 | disposition home or self-care (01) ==
PROVIDERS: Emergency Provider Emergency Medicine; Visit Provider Emergency Medicine
DX: L02.611 Cutaneous abscess of right foot (principal); Z88.0 Allergy status to penicillin; M10.9 Gout, unspecified
CPT/HCPCS: 10060; 80048; 84550; 85025; 96361; 96365; 96375; 99283; J7030; J7050; A4216; J2405

== ENCOUNTER → 2023-08-28 | Outpatient (CLI) | payer BC, SELFPAY | END | disposition home or self-care (01) | PROVIDERS: Visit Provider Podiatrist | DX: L97.512 Non-pressure chronic ulcer of other part of right foot with fat layer exposed (principal) | CPT/HCPCS: 87070; 87075; 87077; 87186; 87205 ==

== ENCOUNTER → 2023-08-29 | Outpatient (CLI) | payer SELFPAY ==
[2023-08-29 12:25] LABS: Absolute Lymphocyte Count 3.31 X10^3/uL (0.83-4.51); Absolute Neutrophil Count 3.7 X10^3/uL (2.0-7.7); Basophil# 0.06 X10^3/uL; Basophil% 0.7 % (0-1); Eosinophil# 0.64 X10^3/uL; Eosinophils% 7.7 % (0-5); Hematocrit 39.3 % (37-47); Hemoglobin 13.2 g/dL (12.0-15.0); Lymphocyte # 3.31 X10^3/ul (0.83-4.51); Lymphocyte % 39.6 % (19-41); Mean Corp Hgb Conc 33.6 g/dL (32-36); Mean Corpuscular Hgb 28.9 pg (27.0-32.0); Mean Platelet Vol. 10.1 fl (6.2-12.0); Monocyte# 0.66 X10^3/uL; Monocyte% 7.9 % (0-10); NRBC Flagged by Analyzer 0 % (0-5); Neutrophil # 3.66 X10^3/uL (2.7-7.7); Neutrophil % 43.9 % (47-70); Platelet Count 338 K/mm3 (150-450); RBC Distribution Width CV 12.5 % (11.6-14.6); Red Blood Count 4.57 M/mm3 (4.2-5.4); White Blood Count 8.4 K/mm3 (4.4-11.0)
[2023-08-29 12:28] LABS: Erythrocyte Sedimentation Rate 20 mm/hr (0-30)
[2023-08-29 13:06] LABS: AST(SGOT) 15 U/L (15-37); Alanine Aminotransfer ALT/SGPT 28 U/L (13-56); Albumin, Serum 3.6 g/dL (3.2-5.0); Alkaline Phosphatase 100 U/L (45-117); Anion Gap 5 (5-15); BUN 14 mg/dL (7-18); BUN/Creat Ratio 15.2 RATIO (10-20); Calcium,Total 8.8 mg/dL (8.5-10.1); Chloride 104 mmol/L (98-107); Creatinine, Serum 0.92 mg/dL (0.55-1.02); EST Glomerular Filtration Rate 76 mL/min (>60); Est Glom Filt Rate - Afr Amer 92 mL/min (>60); Globulin 3.6 g/dL (2.2-4.2); Glucose 114 mg/dL (74-106); Potassium 3.3 mmol/L (3.5-5.1); Prealbumin 24.8 mg/dL (20.0-40.0); Protein, Total 7.2 g/dL (6.4-8.2); Sodium Level 138 mmol/L (136-145)
[2023-08-29 13:32] LABS: Hemoglobin A1c 5.5 % (3.8-5.6)
== END | disposition home or self-care (01) ==
PROVIDERS: Referring Provider Podiatrist; Visit Provider Podiatrist
DX: L97.512 Non-pressure chronic ulcer of other part of right foot with fat layer exposed (principal)
CPT/HCPCS: 36415; 80053; 83036; 84134; 85025; 85652; 86140

== ENCOUNTER → 2023-09-17 | Outpatient (CLI) | payer SELFPAY ==
--- NOTE | 2023-09-17 12:54 | MRI_ITS ---
EXAM: MR RIGHT LOWER EXTREMITY WITHOUT INTRAVENOUS CONTRAST CLINICAL INDICATION: RT FOOT, CELLULITIS OF TOE TECHNIQUE: Multiplanar and multisequence MR images of the right lower extremity without intravenous contrast. COMPARISON: 07/07/22 exam FINDINGS: BONES/JOINTS: Bone marrow edema involving the tibial sesamoid. No fracture. No abnormal bone marrow signal. No joint effusion. MUSCLES: Unremarkable. No edema or myositis. OTHER SOFT TISSUES: Unremarkable. No solid or cystic mass. MRI/Lower Ext/No Jt/w/o IMPRESSION: Tibial sesamoid marrow edema which can be due to trauma with no fracture line seen. Ischemic change can also have a similar appearance. Electronically Signed: Power Darby MD at 22:44 EDT ,
== END | disposition home or self-care (01) ==
PROVIDERS: Referring Provider Podiatrist; Visit Provider Podiatrist
DX: L03.031 Cellulitis of right toe (principal)
CPT/HCPCS: 73718

== ENCOUNTER 2023-10-24 08:41 | Emergency (ER) | payer SELFPAY ==
[2023-10-24 08:41] VITALS: BP 112/81; PULSE 76; RESP 16; TEMP 36.2; O2SAT 97; BMI 29.4
--- NOTE | 2023-10-24 09:03 | EDS_ITS ---
HPI History of Present Illness Chief Complaint: Head Injury Narrative Narrative: 28-year-old female presenting with head and neck pain. Patient states that she was crawling around under her kitchen table playing with a cat and stood up at full speed not realizing the table as above and hit her head and injured her neck. She had the vertex of her head. She did not have LOC. She is not on any anticoagulation but she states she felt like she was dizzy and she has a severe headache. She also has light sensitivity and she started vomiting. Patient's neck is painful everywhere. She denies any paresthesias. She is able to walk into the emergency room. [facility] Medical History History of tonsillitis Home Medications ?Medication ?Instructions ?Recorded ?Last Taken ?Type ibuprofen 600 mg tablet 600 mg PO Q6H PRN PRN pain #20 07/07/22 Unknown Rx TABLETS ciprofloxacin HCl 750 mg tablet 750 mg PO BID #20 tabs 07/10/22 Unknown Rx doxycycline monohydrate 100 mg 100 mg PO BID #20 CAPSULES 07/10/22 Unknown Rx capsule hydrocodone-acetaminophen 5-325mg 1 tab PO Q6H PRN PRN Pain 3 days 07/10/22 Unknown Rx 5mg-325mg #10 TABLETS ondansetron 4 mg disintegrating 4 mg PO Q8H PRN PRN Nausea #14 tabs 10/24/23 Unknown Rx tablet Allergy/AdvReac Type Severity Reaction Status Date / Time amoxicillin Allergy Anaphylaxis Verified 07/10/22 15:38 Penicillins (PCN) Allergy Anaphylaxis Verified 07/10/22 15:38 vancomycin AdvReac Hives Verified 07/10/22 17:48 Surgical History History of surgical removal of pilonidal cyst Hx of cholecystectomy Social History Smoking Status: Never smoker substance use type: does not use ROS ROS ED Constitutional Constitutional ED: Denies chills, fever(s) or sweats Eyes Eyes: Reports other Details: Light sensitivity ; Denies blurry vision or change in vision ENT ENT ED: Denies ear pain or sore throat Cardiovascular Cardiovascular: Denies chest pain, palpitations or racing heartbeat Respiratory/Chest Respiratory/Chest: Denies cough, dyspnea or sputum Gastrointestinal Gastrointestinal: Reports nausea and vomiting; Denies abdominal pain, constipation or diarrhea Genitourinary Genitourinary ED: Denies dysuria, hematuria or urinary frequency Musculoskeletal Musculoskeletal: Denies arthralgias, myalgias or neck pain Integumentary Denies abscess, Abrasions or rash Neurologic Neurologic: Reports headache(s); Denies paresthesias or weakness Psychiatric Psychiatric: Denies anxiety, depression, suicidal ideation or suicidal thoughts Endocrine Endocrinology: Denies polydipsia or polyuria EXAM Physical Exam Const Vital Signs: 10/24/23 08:41 10/24/23 09:41 10/24/23 11:09 Temperature 97.2 F L 98.7 F Temperature Source Temporal Pulse Rate 76 84 Respiratory Rate 16 16 Respiratory Effort Normal Non-Labored Respiratory Depth Normal Respiratory Pattern Normal Blood Pressure 112/81 H 122/74 H Blood Pressure Mean 91 90 Pulse Ox 97 100 Oxygen Delivery Method Room Air Room Air Positive well nourished General Appearance ED: NAD HEENT Reports normocephalic and TM's clear HEENT Narrative: Tenderness to palpation over the vertex of the scalp. No visible hematoma. No laceration. Negative for Martinez's sign, hematoma, laceration or raccoon eyes Face and Sinus: normal facial exam Nose: external nose normal and nares normal Tympanic Membrane ED: Yes TM's clear bilateral Mouth ED: Yes lips normal and Yes tongue normal Mouth: lips normal and tongue normal Eyes PERRL and EOMs intact bilaterally Neck Neck Narrative: Diffuse tenderness to palpation over the cervical spine. No midline deformity or step-off. Chest Wall inspection of chest normal Resp normal respiratory effort Cardio regular rhythm Extremity normal to inspection Neuro oriented x3, CN's II-XII intact bilaterally, moves all extremities, no focal motor deficits and no sensory deficits noted [place] Coma Scale: document GCS findings Spontaneous Obeys Commands Oriented 15 Sensorium / Orientation: alert Motor Exam: strength 5/5 throughout Psych mental status grossly normal and thought process normal Skin no rashes or lesions noted and no wounds MDM MDM MDM Narrative Medical decision making narrative: Patient presenting with headache and neck pain after hitting her head on the table at home. Differential includes concussion, skull fracture, cervical strain, cervical fracture, intracranial hemorrhage. IV line was established patient medicated with Reglan, Benadryl. Will obtain CT brain, cervical spine. On reevaluation patient's headache is improved. CT brain negative and CT cerv ical spine also negative. I believe the patient has a concussion. Patient does not have a primary care physician nor does she have insurance that she was referred to [facility]. Return precautions were discussed. Impression: 1. Concussion 2. Closed head injury 3. Cervical strain Radiography Diagnostic Testing: Clinical Impression(s) from Imaging Studies Brain CT 10/24/23 10:00 IMPRESSION: Normal unenhanced CT scan of the brain. Electronically Signed: Vinicio Phillips MD at 10:23 EDT , Cervical Spine CT 10/24/23 10:00 IMPRESSION: Loss of the normal cervical lordosis. No acute abnormality is seen. Electronically Signed: Vinicio Phillips MD at 10:24 EDT , Discharge Plan Triage Chief Complaint: Head Injury ED Provider: Moses Giron Dx/Rx/DC Orders Instructions: ED Concussion, ED Neck Sprain or Strain Prescriptions: New ondansetron 4 mg tablet,disintegrating 4 mg PO Q8H PRN PRN (Reason: Nausea) Qty: 14 0RF No Action ibuprofen 600 mg tablet 600 mg PO Q6H PRN PRN (Reason: pain) Qty: 20 0RF doxycycline monohydrate 100 mg capsule 100 mg PO BID Qty: 20 0RF ciprofloxacin HCl 750 mg tablet 750 mg PO BID Qty: 20 0RF hydrocodone-acetaminophen [hydrocodone-acetaminophen] 5-325 mg tablet 1 tab PO Q6H PRN PRN (Reason: Pain) 3 Days Qty: 10 0RF Primary Care Provider: Care Physician,No Primary Referrals: [facility] [Provider Group] Care Physician,No Primary [Primary Care Provider] - Print Language: Kyrgyz Disposition Disposition: Home, Self Care Discharge Date/Time: 10/24/23 11:10
[2023-10-24] MEDS: 0.9% Normal Saline (1000mL) 1,000 ML 999 ML IV (09:50)
[2023-10-24] MEDS: Metoclopramide 10 MG/2 ML Vial IV (09:50)
[2023-10-24] MEDS: DiphenhydrAMINE 50 MG/ML Syringe 25 MG IV (09:50)
--- NOTE | 2023-10-24 10:00 | CT_ITS ---
STUDY: CT BRAIN WITHOUT CONTRAST REASON FOR EXAM: Female, 28 years old. Headache. RADIATION DOSAGE (If Supplied By Facility): CTDIvol = ( 44.99 ) mGy, DLP = ( 779.24 ) mGycm TECHNIQUE: Transaxial CT imaging of the brain was performed without administration of intravenous contrast material. Individualized dose optimization techniques were used for this CT. COMPARISON: No relevant priors. FINDINGS: Normal soft tissue structures. Normal calvarium. Normal size ventricles and extra-axial spaces for the patient''s age. Normal white matter tracts of the cerebral hemispheres. Normal basal ganglia and thalami. Normal brainstem. Normal cerebellum. There is no intracranial hemorrhage. There are no findings of an acute ischemic infarction. Normal visualized paranasal sinuses. CT/Brain/Head without Contrast IMPRESSION: Normal unenhanced CT scan of the brain. Electronically Signed: Vinicio Phillips MD at 10:23 EDT ,
--- NOTE | 2023-10-24 10:00 | CT_ITS ---
STUDY: CT CERVICAL SPINE WITHOUT CONTRAST REASON FOR EXAM: Female, 28 years old. Neck pain RADIATION DOSAGE (If Supplied By Facility): CTDIvol = ( 22.53 ) mGy, DLP = ( 482.58 ) mGycm TECHNIQUE: High resolution transaxial imaging was performed without contrast material. Sagittal and coronal images were reconstructed. Individualized dose optimization techniques were used for this CT. COMPARISON: None FINDINGS: Normal craniovertebral junction. Normal anterior atlantoaxial articulation. Normal odontoid process. There is straightening of the normal cervical lordosis. Normal vertebral bodies and posterior osseous elements. C2-3: Normal endplates. Normal disc height and morphology. Normal central canal and intervertebral neuroforamina. C3-4: Normal endplates. Normal disc height and morphology. Normal central canal and intervertebral neuroforamina. C4-5: Normal endplates. Normal disc height and morphology. Normal central canal and intervertebral neuroforamina. C5-6: Normal endplates. Normal disc height and morphology. Normal central canal and intervertebral neuroforamina. C6-7: Normal endplates. Normal disc height and morphology. Normal central canal and intervertebral neuroforamina. C7-T1: Normal endplates. Normal disc height and morphology. Normal central canal and intervertebral neuroforamina. Normal visualized soft tissue structures. CT/Spine Cervical without Contras IMPRESSION: Loss of the normal cervical lordosis. No acute abnormality is seen. Electronically Signed: Vinicio Phillips MD at 10:24 EDT ,
[2023-10-24 11:09] VITALS: BP 122/74; PULSE 84; RESP 16; TEMP 37.1; O2SAT 100
== END 2023-10-24 11:10 | disposition home or self-care (01) ==
PROVIDERS: Emergency Provider Student in an Organized Health Care Education/Training Program; Visit Provider Student in an Organized Health Care Education/Training Program
DX: S06.0X0A Concussion without loss of consciousness, initial encounter (principal); S16.1XXA Strain of muscle, fascia and tendon at neck level, initial encounter; W22.03XA Walked into furniture, initial encounter
CPT/HCPCS: 70450; 72125; 96361; 96374; 96375; 99283; J7030; A4216

== ENCOUNTER 2023-11-01 13:24 | Emergency (ER) | payer SELFPAY ==
[2023-11-01 13:25] VITALS: BP 132/93; PULSE 99; RESP 16; TEMP 36.2; O2SAT 95; BMI 30.5
--- NOTE | 2023-11-01 13:35 | EDS_ITS ---
HPI History of Present Illness Chief Complaint: Foreign Body Narrative Narrative: 28-year-old female who denies significant past medical history presents after choking while eating chicken. She states that this has happened to her previously but she has never followed up with gastroenterology. Her boyfriend states that she was eating baked chicken that was an Yoruba dressing so it had a stringy consistency. She felt that it was stuck in her throat probably in her esophagus because she could not swallow, and her boyfriend perform the Heimlich maneuver. She was still choking and coughing, but was able to cough up the rest of the chicken while in triage. She feels significantly improved. PFSH PFS Medical History History of tonsillitis Home Medications ?Medication ?Instructions ?Recorded ?Last Taken ?Type NK 11/01/23 Unknown History Allergy/AdvReac Type Severity Reaction Status Date / Time amoxicillin Allergy Anaphylaxis Verified 11/01/23 13:29 Penicillins (PCN) Allergy Anaphylaxis Verified 11/01/23 13:29 vancomycin AdvReac Hives Verified 11/01/23 13:29 Surgical History History of surgical removal of pilonidal cyst Hx of cholecystectomy Social History household members: significant other Smoking Status: Never smoker substance use type: does not use ROS ROS ED ROS Narrative Focused review of systems-patient states that she was choking on food, unable to swallow, and was coughing a significant amount. Symptoms resolved upon arrival to ED. EXAM Physical Exam Narrative Exam Narrative: Afebrile. Vital signs noted. Regular rate and rhythm. Lungs clear to auscultation bilaterally. Abdomen soft and nontender with normal active bowel sounds. Neurological examination nonfocal and nonlateralizing. Airway patent. No drooling or trismus. No foreign body in throat. Pulse ox noted to be 95 to 97% on room air without evidence of hypoxia. Const Vital Signs: 11/01/23 13:25 11/01/23 13:28 Temperature 97.1 F L Temperature Source Temporal Pulse Rate 99 Respiratory Rate 16 Respiratory Effort Short of Breath Respiratory Pattern Tachypnea Blood Pressure 132/93 H Blood Pressure Mean 106 Pulse Ox 95 Oxygen Delivery Method Room Air MDM MDM MDM Narrative Medical decision making narrative: Differential diagnosis includes but not limited to aspiration versus esophageal food impaction. Her choking episode has resolved. She was told that she should follow-up with gastroenterology as there is a possibility of esophageal stricture versus esophageal web as well. Currently, she is able to cough up the food, and she will be given a p.o. challenge to help rule out esophageal food impaction. She was able to pass a p.o. challenge and upon repeat examination at approximately 1405, she feels improved and would like to be discharged. I do not feel she requires admission or any imaging. She was told to follow-up with gastroenterology as soon as possible for upper endoscopy. Return instructions to the emergency department were reviewed. Disposition is discharged home in stable condition. Discharge Plan Triage Chief Complaint: Foreign Body ED Provider: Karsten Noe Dx/Rx/DC Orders Clinical Impression: Choking episode Instructions: ED Choking Spell (Adult) Prescriptions: No Action NK Primary Care Provider: Care Physician,No Primary Referrals: FriendRiki, DO [Med Staff - Active Staff] - As soon as possible Care Physician,No Primary [Primary Care Provider] - Print Language: Citizen Of [place] Disposition Disposition: Home, Self Care
[2023-11-01 14:23] VITALS: BP 92/70; PULSE 84; RESP 14; TEMP 36.2; O2SAT 95
== END 2023-11-01 14:23 | disposition home or self-care (01) ==
PROVIDERS: Emergency Provider Emergency Medicine; Visit Provider Emergency Medicine
DX: T17.228A Food in pharynx causing other injury, initial encounter (principal); W44.F3XA Food entering into or through a natural orifice, initial encounter
CPT/HCPCS: 99282

== ENCOUNTER 2024-04-21 12:58 | Emergency (ER) | payer MEDICAID, SELFPAY ==
[2024-04-21 12:58] VITALS: BP 120/78; PULSE 109; RESP 16; TEMP 36.4; O2SAT 99; BMI 28.4
--- NOTE | 2024-04-21 13:45 | US_ITS ---
HISTORY: 5 weeks 4 days by dates, vaginal bleeding. LMP 03/10/2024. TECHNIQUE: Transvaginal pelvic ultrasound was performed. 88 images. COMPARISON: None. FINDINGS: UTERUS: 8.3 x 4.1 x 5.1 cm. ENDOMETRIAL COMPLEX: 9 mm in thickness. 2 mm cystic structure in the endometrial cavity without yolk sac or pole. RIGHT OVARY: 2.4 x 2.4 x 3.5 cm. 2 cm cyst. LEFT OVARY: 2.6 x 2.6 x 4.1 cm. No adnexal masses. FREE FLUID: None. US/Transvaginal w/Preg US IMPRESSION: 2 mm cystic structure in endometrial cavity, indeterminate for pseudo-gestational or very early intrauterine gestational sac. Recommend correlation with serial beta hCG levels and follow-up ultrasound to assess for ectopic or spontaneous miscarriage versus very early intrauterine . 2 cm right ovarian corpus luteal or hemorrhagic cyst. Electronically Signed: Lucinda Jeter MD at 15:39 EST ,
[2024-04-21 14:13] LABS: hCG Titer Quant., Serum 377 mIU/mL (1-3)
--- NOTE | 2024-04-21 14:32 | EDS_ITS ---
HPI <Dr. Roberto Bhakta MD - Last Filed: 04/29/24 23:47> HPI - Female History of Present Illness Chief Complaint: Vag Bld, Preg Detail of Chief Complaint: Vaginal bleeding first trimester Informant: patient and spouse/S.O. Pain Pain: Negative for Pelvic Pain, Vulvar Pain or Vaginal Pain Bleeding Issue: Positive for Vaginal bleeding; Negative for Passing clots or Passing tissue Onset: Today and Hours (0.5 hours prior to presentation) Context: Sudden Onset Timing: Continuous Current Severity: Heavy Maximum Severity: Heavy Associated Symptoms Associated Symptoms: Positive for Frequency and - (Positive test through [facility] Negative for Dysuria, Urgency or Hematuria Last known menstrual period: Patient states by dates she is 5 weeks 4 days. Test: Positive Sexually: Positive for Active Control: No control P: 0 Ab: 0 Narrative Narrative: Patient is a 28-year-old G1, P0 Ab0 woman who had a positive test at [facility]. She has not had an ultrasound for this . She presents because of abrupt onset of bleeding. She did not notice any clots or sac. Patient has O+ blood. She denies history of STI, endometriosis or ovarian cyst. She presently has no pain. She still is bleeding. Her only urologic symptom is frequency. She has no significant past medical history on no medication. Prior similar symptoms: No Recent Illness/Hospitalization: No PFSH <Dr. Roberto Bhakta MD - Last Filed: 04/29/24 23:47> PFS Medical History History of tonsillitis Home Medications ?Medication ?Instructions ?Recorded ?Last Taken ?Type nitrofurantoin 100 mg PO Q12H 7 days #14 caps 04/28/24 Unknown Rx monohydrate/macrocrystals 100 mg capsule (Macrobid) Allergy/AdvReac Type Severity Reaction Status Date / Time amoxicillin Allergy Anaphylaxis Verified 04/28/24 17:18 Penicillins (PCN) Allergy Anaphylaxis Verified 04/28/24 17:18 vancomycin AdvReac Hives Verified 04/28/24 17:18 Surgical History History of surgical removal of pilonidal cyst Hx of cholecystectomy Social History household members: significant other Smoking Status: Never smoker substance use type: does not use ROS <Dr. Roberto Bhakta MD - Last Filed: 04/29/24 23:47> ROS ED Constitutional Constitutional ED: Denies chills or fever(s) Eyes Eyes: Denies change in vision Cardiovascular Cardiovascular: Reports other Details: Denies orthostatic symptoms. ; Denies chest pain or palpitations Respiratory/Chest Respiratory/Chest: Denies cough, dyspnea or dyspnea on exertion Gastrointestinal Gastrointestinal: Denies abdominal pain, melena, nausea or vomiting Genitourinary Genitourinary ED: Reports urinary frequency; Denies dysuria or hematuria Musculoskeletal Musculoskeletal: Denies neck pain Neurologic Neurologic: Denies headache(s), paresthesias or weakness Psychiatric Psychiatric: Denies anxiety or depression Hematologic/Lymphatic Hematologic/Lymphatic: Denies easy bleeding or easy bruising EXAM <Dr. Roberto Bhakta MD - Last Filed: 04/29/24 23:47> Physical Exam Const Vital Signs: 04/21/24 12:58 04/21/24 15:41 04/21/24 16:36 Temperature 97.6 F L 98 F Temperature Source Oral Pulse Rate 109 H 87 88 Respiratory Rate 16 16 16 Blood Pressure 120/78 116/71 112/76 Blood Pressure Mean 92 86 88 Pulse Ox 99 96 96 Oxygen Delivery Method Room Air Room Air Positive well nourished and well developed General Appearance ED: well developed and NAD HEENT Reports moist mucous membranes HEENT Narrative: Multiple piercings noted. Nares patent. Ears normal. Eyes PERRL and EOMs intact bilaterally General Eye ED: Negative for pale conjunctiva Neck no lymphadenopathy and supple Resp normal respiratory effort and clear to auscultation bilaterally Cardio regular rate, regular rhythm, S1 normal heart sound, no murmurs and no JVD GI normal to inspection, nondistended, normoactive bowel sounds, soft to palpation, non-tender, non-distended and no masses Narrative: External genitalia normal. Vaginal mucosa appears normal. There is some blood noted in the vaginal vault. Cervix appears normal with a negative Kimballton's sign. Patient has a slightly oblong good cervix which is not consistent with a normal part of cervix. There is no uterine or adnexal tenderness. Uterus is slightly enlarged. Back/Spine no CVA tenderness Extremity normal to inspection Neuro oriented x3 and CN's II-XII intact bilaterally Sensorium / Orientation: alert Psych mental status grossly normal Skin no rashes or lesions noted and no wounds <Dr. Thai Land DO - Last Filed: 04/21/24 16:54> Physical Exam Const Vital Signs: 04/21/24 12:58 04/21/24 15:41 04/21/24 16:36 Temperature 97.6 F L 98 F Temperature Source Oral Pulse Rate 109 H 87 88 Respiratory Rate 16 16 16 Blood Pressure 120/78 116/71 112/76 Blood Pressure Mean 92 86 88 Pulse Ox 99 96 96 Oxygen Delivery Method Room Air Room Air MDM <Dr. Roberto Bhakta MD - Last Filed: 04/29/24 23:47> MDM MDM Narrative Medical decision making narrative: With first trimester bleeding need to evaluate for threatened AB versus incomplete AB versus complete AB. Quantitative hCG was obtained. Since patient's blood type is known this was not obtained. The pelvic exam was performed with nurse unit reactor operator. Lab Data Attestation: I reviewed the patient's lab results. Lab results narrative: Quant is 377. 1 would expect if she is truly 5 to 6 weeks that the quant would be higher. Based on the hCG level the yolk sac may not be seen on ultrasound. Labs: Laboratory Results - last 24 hr 04/21/24 13:39 HCG, Quant 377 H Radiography Diagnostic Testing: Clinical Impression(s) from Imaging Studies Obstetrics Ultrasound 04/21/24 13:45 IMPRESSION: 2 mm cystic structure in endometrial cavity, indeterminate for pseudo-gestational or very early intrauterine gestational sac. Recommend correlation with serial beta hCG levels and follow-up ultrasound to assess for ectopic or spontaneous miscarriage versus very early intrauterine . 2 cm right ovarian corpus luteal or hemorrhagic cyst. Electronically Signed: Lucinda Jeter MD at 15:39 EST , Transvaginal ultrasound reveals no live intrauterine . There is a small area noted but does not appear to be a gestational sac. There is something noted in the right adnexa. Awaiting formal read by radiologist. Patient was given a list of providers to follow-up with. On that list was Dr. Milady Delgadillo and Che Vázquez. <Dr. Thai Land, DO - Last Filed: 04/21/24 16:54> [facility] Narrative Medical decision making narrative: With first trimester bleeding need to evaluate for threatened AB versus incomplete AB versus complete AB. Quantitative hCG was obtained. Since patient's blood type is known this was not obtained. The pelvic exam was performed with nurse unit reactor operator. Dr. Land: Patient was signed out to me by Dr. Bhakta. At the time of sign out, patient's formal read of her transvaginal ultrasound was pending. Transvaginal ultrasound shows a 2 mm cystic structure in the endometrial cavity, indeterminate for pseudo gestational or very early intrauterine gestational sac. Recommend correlation with hCG levels and follow-up ultrasound. Patient also has a 2 cm right ovarian corpus luteal or hemorrhagic cyst. Patient's beta hCG level is 377. On reexamination, patient's vitals are stable. She is not having any abdominal pain. Patient and significant other in the room were updated of the ultrasound findings. They were informed that patient may be having a miscarriage versus bleeding in early . She was informed that she will need her hCG repeated in 48 hours. She was given a prescription for this. She needs to follow-up with the SUPERVISOR [facility] ENERGY CONSULTANT that was given to her in discharge in order to have her hCG followed and repeat ultrasound. She was told to call their office today to make an appointment. She confirmed understanding. She is told to return back to the ED if symptoms change or worsen. Patient is stable to discharge home. Impression: 1. Bleeding in early Lab Data Labs: Laboratory Results - last 24 hr 04/21/24 13:39 HCG, Quant 377 H Radiography Diagnostic Testing: Clinical Impression(s) from Imaging Studies Obstetrics Ultrasound 04/21/24 13:45 IMPRESSION: 2 mm cystic structure in endometrial cavity, indeterminate for pseudo-gestational or very early intrauterine gestational sac. Recommend correlation with serial beta hCG levels and follow-up ultrasound to assess for ectopic or spontaneous miscarriage versus very early intrauterine . 2 cm right ovarian corpus luteal or hemorrhagic cyst. Electronically Signed: Lucinda Jeter MD at 15:39 EST , Discharge Plan Triage Chief Complaint: Vag Bld, Preg ED Provider: Roberto Bhakta Dx/Rx/DC Orders Clinical Impression: Vaginal bleeding affecting early Instructions: Bleeding During Early Prescriptions: No Action nitrofurantoin monohyd/m-cryst [Macrobid] 100 mg capsule 100 mg PO Q12H 7 Days Qty: 14 0RF Rx Instructions: must administer with a meal/food Primary Care Provider: Care Physician,No Primary Referrals: Milady Delgadillo MD [Med Staff - Active Staff] - 3-5 Days Care Physician,No Primary [Primary Care Provider] - Activity Restrictions/Additional Instructions: You will need to get your beta-hCG level checked in 48 hours. Call the office of the SUPERVISOR HOME ENERGY CONSULTANT listed above to make an appointment as soon as possible as you will need to have these levels monitored as well as repeat ultrasound. Return back to the emergency department if symptoms change or worsen. Print Language: Citizen Of [place] Disposition Disposition: Home, Self Care Discharge Date/Time: 04/21/24 17:03
[2024-04-21 15:41] VITALS: BP 116/71; PULSE 87; RESP 16; O2SAT 96
[2024-04-21 16:36] VITALS: BP 112/76; PULSE 88; RESP 16; TEMP 36.6; O2SAT 96
--- NOTE | 2024-04-28 12:01 | ED.RN ---
Pt called to get test results of second HCG. Pt was referred to Dr Delgadillo which is whom she was referred when seen.
== END 2024-04-21 17:03 | disposition home or self-care (01) ==
PROVIDERS: Emergency Provider Emergency Medicine; Visit Provider Emergency Medicine
DX: O20.9 Hemorrhage in early pregnancy, unspecified (principal); Z3A.01 Less than 8 weeks gestation of pregnancy
CPT/HCPCS: 76817; 84702; 99282

== ENCOUNTER → 2024-04-23 | Outpatient (CLI) | payer MEDICAID, SELFPAY ==
[2024-04-23 14:48] LABS: hCG Titer Quant., Serum 624 mIU/mL (1-3)
== END | disposition home or self-care (01) ==
LOC: LAB 14:05
PROVIDERS: Obstetrics & Gynecology; Referring Provider Surgery; Visit Provider Surgery
DX: O20.9 Hemorrhage in early pregnancy, unspecified (principal); Z3A.00 Weeks of gestation of pregnancy not specified
CPT/HCPCS: 84702

== ENCOUNTER 2024-04-28 17:17 | Emergency (ER) | payer MEDICAID, SELFPAY ==
[2024-04-28 17:17] VITALS: BP 137/87; PULSE 106; RESP 16; TEMP 36.9; O2SAT 97; BMI 28.9
[2024-04-28 17:42] LABS: Absolute Lymphocyte Count 2.05 X10^3/uL (0.83-4.51); Absolute Neutrophil Count 7.1 X10^3/uL (2.0-7.7); Basophil# 0.04 X10^3/uL; Basophil% 0.4 % (0-1); Eosinophil# 0.17 X10^3/uL; Eosinophils% 1.7 % (0-5); Hematocrit 38.9 % (37-47); Lymphocyte # 2.05 X10^3/ul (0.83-4.51); Lymphocyte % 20.5 % (19-41); Mean Corp Hgb Conc 33.4 g/dL (32-36); Mean Corpuscular Hgb 28.4 pg (27.0-32.0); Mean Corpuscular Volume 85.1 fL (81-99); Mean Platelet Vol. 10.1 fl (6.2-12.0); Monocyte# 0.62 X10^3/uL; Monocyte% 6.2 % (0-10); NRBC Flagged by Analyzer 0 % (0-5); Neutrophil # 7.07 X10^3/uL (2.7-7.7); Neutrophil % 70.8 % (47-70); Platelet Count 317 K/mm3 (150-450); RBC Distribution Width CV 12.8 % (11.6-14.6); RBC Distribution Width SD 39.3 fl (35.1-43.9); Red Blood Count 4.57 M/mm3 (4.2-5.4)
[2024-04-28 17:53] LABS: Internal QC Validated? YES +Cl - CLEAR BKGD; Pregnancy, Serum, hCG Quali. POSITIVE Negative
[2024-04-28 18:00] LABS: ALB/GLOB Ratio 0.9 RATIO (0.9-2.4); AST(SGOT) 10 U/L (15-37); Alanine Aminotransfer ALT/SGPT 24 U/L (13-56); Albumin, Serum 3.5 g/dL (3.2-5.0); Alkaline Phosphatase 122 U/L (45-117); Anion Gap 6 (5-15); BUN 6 mg/dL (7-18); BUN/Creat Ratio 7.8 RATIO (10-20); Calcium,Total 8.8 mg/dL (8.5-10.1); Chloride 108 mmol/L (98-107); Creatinine, Serum 0.77 mg/dL (0.55-1.02); EST Glomerular Filtration Rate 94 mL/min (>60); Est Glom Filt Rate - Afr Amer 113 mL/min (>60); Estimated Creatinine Clearance 114.81 ml/min; Globulin 3.8 g/dL (2.2-4.2); Glucose 144 mg/dL (74-106); Potassium 3.6 mmol/L (3.5-5.1); Protein, Total 7.3 g/dL (6.4-8.2); Sodium Level 139 mmol/L (136-145)
[2024-04-28 19:17] VITALS: BP 106/67; PULSE 96; RESP 16; O2SAT 98
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
--- NOTE | 2024-04-28 19:47 | US_ITS ---
We are attempting to reach an attending provider to discuss findings. An addendum with communication details will be sent when the communication is complete. INDICATION: Vaginal bleeding in early EXAMINATION: Ultrasound US OB Transvaginal TECHNIQUE: Transvaginal (for optimal evaluation of the adnexa) pelvic ultrasound was performed. Grayscale, spectral waveform, and color flow Doppler evaluation of the adnexa. COMPARISON: Prior study dated: 04/21/2024. LMP: 03/13/2024. Beta-hC. FINDINGS: UTERUS: 7.8 x 4.4 x 3.6 cm. A normal linear endometrial stripe is present measuring 2 mm in thickness. The 2 mm cystic structure previously seen within the endometrial cavity is no longer present. Within the posterior myometrium of the lower uterine segment is a 0.6 x 0.8 x 0.5 cm ovoid hypoechoic focus consistent with a fibroid. INTRAUTERINE GESTATIONAL SAC: Not visualized. YOLK SAC: Not visualized. POLE: Not visualized. RIGHT OVARY: 2.9 x 2.5 x 2.0 cm in diameter. Doppler flow is documented within the right ovary. Right ovary contains a 1.4 x 1.2 x 1.4 cm thin-walled cystic/anechoic lesion, consistent with a dominant follicle which is decreased in size since the prior study when it measured 2 cm in maximal diameter. Since the prior study, a 3 x 2.6 x 3.3 cm lobulated heterogeneous hypoechoic avascular lesion has developed in the right adnexa, abutting the right ovary, suspicious for clot which may be due to underlying ectopic . No discrete gestational sac or pole seen within this right paraovarian lesion. LEFT OVARY: 2.1 x 2.9 x 3.4 cm in diameter.. Normal. Doppler flow is documented within the left ovary. FREE FLUID: None.No hemoperitoneum. US/Transvaginal w/Preg US IMPRESSION: No intrauterine gestational sac identified. Interval development of a 3 cm heterogeneous avascular paraovarian mass on the right, worrisome for clot which may be due to underlying ectopic . Nonstandard communication protocol initiated. Electronically Signed: Harjit Smallwood MD at 22:28 EST ,
[2024-04-28 19:48] LABS: Mucous, Urine 0 SEEN /hpf (<or=2+); Squamous Epithelial Cells - UA 0 SEEN /hpf (5-10)
[2024-04-28 19:55] LABS: Color, Urine Red (Yellow); Glucose, Dipstick Normal (Normal); Ketone-Dipstick Negative (Negative); Leukocyte Esterase-Dipstick 100 /ul (Negative); Nitrite-Dipstick Positive (Negative); Occult Blood-Urine 250 /ul (Negative); Protein-Dipstick 100 mg/dl (Negative); Urine Bilirubin Dipstick Negative (Negative); Urine Clarity Cloudy (Clear); Urine Urobilinogen Normal (Normal); Urine pH 6.5 (5.0 - 8.0)
[2024-04-28 20:31] LABS: Red Blood Cells-Urine > 100 SEEN /hpf (0-5); White Blood Cells 25-50 SEEN /hpf (0-5)
[2024-04-28 20:32] LABS: Bacteria 1+ /hpf (None Seen)
[2024-04-28 20:39] LABS: hCG Titer Quant., Serum 169 mIU/mL (1-3)
[2024-04-28 21:00] VITALS: BP 118/65; PULSE 78; RESP 16; O2SAT 98
[2024-04-28 23:00] VITALS: BP 116/66; PULSE 60; RESP 14; O2SAT 98
[2024-04-29 00:03] VITALS: BP 112/67; PULSE 67; RESP 18; TEMP 36.6; O2SAT 99
== END 2024-04-29 00:03 | disposition home or self-care (01) ==
PROVIDERS: Emergency Provider Surgery; Visit Provider Surgery
DX: O20.9 Hemorrhage in early pregnancy, unspecified (principal); O23.41 Unspecified infection of urinary tract in pregnancy, first trimester; Z3A.00 Weeks of gestation of pregnancy not specified
CPT/HCPCS: 76817; 80053; 81001; 84702; 84703; 85025; 87086; 87088; 99283; A4216

== ENCOUNTER → 2024-05-01 | Outpatient (CLI) | payer MEDICAID, SELFPAY ==
[2024-05-01 17:49] LABS: hCG Titer Quant., Serum 68 mIU/mL (1-3)
== END | disposition home or self-care (01) ==
PROVIDERS: Obstetrics & Gynecology; Referring Provider Surgery; Visit Provider Surgery
DX: O20.9 Hemorrhage in early pregnancy, unspecified (principal); Z3A.00 Weeks of gestation of pregnancy not specified
CPT/HCPCS: 36415; 84702

== ENCOUNTER → 2024-05-12 | Outpatient (CLI) | payer MEDICAID, SELFPAY ==
[2024-05-12 12:28] LABS: Absolute Lymphocyte Count 2.26 X10^3/uL (0.83-4.51); Basophil# 0.05 X10^3/uL; Basophil% 0.7 % (0-1); Eosinophil# 0.17 X10^3/uL; Eosinophils% 2.5 % (0-5); Hematocrit 38.6 % (37-47); Hemoglobin 12.6 g/dL (12.0-15.0); Lymphocyte # 2.26 X10^3/ul (0.83-4.51); Lymphocyte % 32.7 % (19-41); Mean Corp Hgb Conc 32.6 g/dL (32-36); Mean Corpuscular Hgb 27.5 pg (27.0-32.0); Mean Corpuscular Volume 84.3 fL (81-99); Monocyte# 0.48 X10^3/uL; Monocyte% 6.9 % (0-10); NRBC Flagged by Analyzer 0 % (0-5); Neutrophil # 3.95 X10^3/uL (2.7-7.7); Neutrophil % 57.1 % (47-70); Platelet Count 300 K/mm3 (150-450); RBC Distribution Width CV 12.4 % (11.6-14.6); RBC Distribution Width SD 37.4 fl (35.1-43.9); Red Blood Count 4.58 M/mm3 (4.2-5.4); White Blood Count 6.9 K/mm3 (4.4-11.0)
[2024-05-12 14:36] LABS: hCG Titer Quant., Serum 2 mIU/mL (1-3)
[2024-05-12 16:02] LABS: Hepatitis B Surface Antigen Non-Reactive (Nonreactive); Hepatitis C Antibody Non-Reactive (Nonreactive); Syphilis Antibodies Non-reactive
[2024-05-13 22:09] LABS: HIV - WCH Non-Reactive (Nonreactive)
[2024-05-14 22:06] LABS: Chlamydia By Nucleic Acid AMP Negative (Negative); Gonococcus By Nucleic Acid AMP Negative (Negative)
[2024-05-16 16:08] LABS: HPV APTIMA, High Risk Negative (Negative)
== END | disposition home or self-care (01) ==
LOC: BWCLAB 12:11
PROVIDERS: Referring Provider Nurse Practitioner Women's Health; Visit Provider Nurse Practitioner Women's Health
DX: O03.9 Complete or unspecified spontaneous abortion without complication (principal); Z20.2 Contact with and (suspected) exposure to infections with a predominantly sexual mode of transmission; Z11.3 Encounter for screening for infections with a predominantly sexual mode of transmission; Z12.4 Encounter for screening for malignant neoplasm of cervix

== ENCOUNTER → 2024-09-17 | Outpatient (CLI) | payer MEDICAID, SELFPAY ==
[2024-09-18 11:06] LABS: hCG Titer Quant., Serum < 1 mIU/mL (<9 non-preg)
== END | disposition home or self-care (01) ==
PROVIDERS: Referring Provider Obstetrics & Gynecology; Visit Provider Obstetrics & Gynecology
DX: O20.9 Hemorrhage in early pregnancy, unspecified (principal); Z3A.00 Weeks of gestation of pregnancy not specified
CPT/HCPCS: 36415; 84702

== ENCOUNTER → 2024-09-19 | Outpatient (CLI) | payer MEDICAID, SELFPAY ==
[2024-09-19 17:21] LABS: hCG Titer Quant., Serum < 1 mIU/mL (<9 non-preg)
== END | disposition home or self-care (01) ==
LOC: BWCLAB 15:32
PROVIDERS: Visit Provider Obstetrics & Gynecology
DX: O20.9 Hemorrhage in early pregnancy, unspecified (principal); Z3A.00 Weeks of gestation of pregnancy not specified
CPT/HCPCS: 36415; 84702

== ENCOUNTER 2024-11-19 12:49 | Emergency (ER) | payer MEDICAID, SELFPAY ==
[2024-11-19] VITALS (7 sets, daily range): BP systolic 107–128; BP diastolic 70–97; PULSE 62–106; RESP 12–18; TEMP 36.4–36.6; O2SAT 97–99; BMI 29.7
[2024-11-19] MEDS: 0.9% Normal Saline (1000mL) 1,000 ML 999 ML IV (13:51)
[2024-11-19 14:06] LABS: Hematocrit 38.4 % (37-47); Hemoglobin 13.0 g/dL (12.0-15.0); Immature Granulocytes Count 0.020 X10^3/uL (0.0-0.0); Mean Corp Hgb Conc 33.9 g/dL (32-36); Mean Corpuscular Volume 83.3 fL (81-99); Mean Platelet Vol. 9.8 fl (6.2-12.0); NRBC Flagged by Analyzer 0 % (0-5); Platelet Count 267 K/mm3 (150-450); RBC Distribution Width CV 13.3 % (11.6-14.6); RBC Distribution Width SD 39.9 fl (35.1-43.9); Red Blood Count 4.61 M/mm3 (4.2-5.4); White Blood Count 6.3 K/mm3 (4.4-11.0)
[2024-11-19 14:25] LABS: Mucous, Urine 0 SEEN /hpf (<or=2+)
[2024-11-19 14:26] LABS: Color, Urine Yellow (Yellow); Glucose, Dipstick Normal (Normal); Ketone-Dipstick 5 mg/dl (Negative); Leukocyte Esterase-Dipstick Negative /ul (Negative); Nitrite-Dipstick Negative (Negative); Occult Blood-Urine 25 /ul (Negative); Protein-Dipstick 15 mg/dl (Negative); Specific Gravity, Urine 1.010 (1.002-1.030); Urine Bilirubin Dipstick Negative (Negative)
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
[2024-11-19 14:44] LABS: Red Blood Cells-Urine 0-5 SEEN /hpf (0-5); Squamous Epithelial Cells - UA 0-5 SEEN /hpf (5-10)
[2024-11-19 14:59] LABS: Anion Gap 11 (5-15); BUN 11 mg/dL (4-19); BUN/Creat Ratio 13.7 RATIO (10-20); Calcium,Total 8.8 mg/dL (7.6-11.0); Carbon Dioxide 24.1 mmol/L (21.0-32.0); Chloride 105 mmol/L (98-108); Estimated Creatinine Clearance 113.80 ml/min (50-250); Glucose 92 mg/dL (70-99); Potassium 3.9 mmol/L (3.3-5.1)
[2024-11-19 15:00] LABS: hCG Titer Quant., Serum < 1 mIU/mL (<9 non-preg)
--- NOTE | 2024-11-19 15:31 | US_ITS ---
PROCEDURE: TRANSVAGINAL NON- 11/19/2024 REASON FOR EXAM: CONCERN FOR COMPLETE TECHNIQUE: TRANSVAGINAL NON- COMPARISON: Pelvic ultrasounds dated 04/21/2024, 04/28/2024. FINDINGS: Anteverted uterus appears grossly normal in size and smooth in contour, measuring 7.6 x 4.6 x 3.4 cm. There is a hypoechoic probable intramural fibroid in the dorsal aspect of the uterine body, measuring up to 0.7 cm in diameter. Heterogeneous endometrial contents with a small amorphous anechoic fluid collection at the uterine fundus, and small amount of heterogeneous hyperechoic presumed blood clot material within the remainder of the uterine cavity, nonspecific. No normal intrauterine gestational sac is seen. The cervix appears closed. Small cervical nabothian cysts are noted. Both ovaries appear within normal limits bilaterally. The right ovary measures 5.1 x 2.6 x 2.5 cm, and contains a simple cyst/dominant follicle measuring up to 1.7 cm. The left ovary measures 4.1 x 3.6 x 3 cm. Blood flow is demonstrated bilaterally within the ovaries on color Doppler. No adnexal mass or significant free pelvic fluid is seen. US/Transvaginal Non- IMPRESSION: No normal intrauterine gestation is present. No adnexal mass or other patholog y concerning for ectopic . No significant free pelvic fluid. Small amount of heterogeneous avascular fluid and hyperechoic probable complex blood clot material within the uterine cavity, nonspecific. The cervix is closed. These findings may represent an ongoing or incomplete miscarriage. Suggest short-term follow-up ultrasound as clinically warranted. Reading Location: [id number]
== END 2024-11-19 17:48 | disposition home or self-care (01) ==
PROVIDERS: Emergency Provider Surgery; Referring Provider Surgery; Visit Provider Surgery
DX: O03.4 Incomplete spontaneous abortion without complication (principal)
CPT/HCPCS: 76830; 80048; 81001; 84702; 85025; 86900; 86901; 96361; 96374; 99283; J2405